=== PATIENT | male | born 1945 | race Caucasian/White ===

== ENCOUNTER 2016-08-29 09:33 | Emergency (ER) | payer OTHER ==
--- NOTE | 2016-08-29 10:05 | C.PDOC ---
History Of Present Illness 71 yo male, hx of htn, presents with swelling and tenderness to right elbow. as per pt, had symptoms x 2 weeks. pt unsure of any trauma. pt also noted bruising to right upper extremity. pt reports "unsure if had insect bite" to right upper extremity. pt denies fevers, or trauma, or other complaints. Time Seen by Provider: 08/29/16 09:50 Chief Complaint (Nursing): Upper Extremity Problem/Injury Past Medical History Reviewed: Historical Data, Nursing Documentation, Vital Signs Vital Signs: Last Vital Signs Temp 97.7 F 08/29/16 12:40 Pulse 73 08/29/16 12:40 Resp 16 08/29/16 12:40 BP 160/91 H 08/29/16 12:40 Pulse Ox 99 08/29/16 12:40 - Medical History PMH: HTN Family History: States: Unknown Family Hx - Social History Hx Alcohol Use: Yes Hx Substance Use: No Review Of Systems Except As Marked, All Systems Reviewed And Found Negative. Musculoskeletal: Positive for: Other ((+)elbow swelling) Skin: Positive for: Other (ecchymosis to right arm) Physical Exam - Physical Exam Appears: Well, No Acute Distress, Other (smiling in nad) Skin: Normal Color, Warm, Dry Eye(s): bilateral: Normal Inspection, PERRL, EOMI Nose: Normal Throat: Normal Neck: Normal Cardiovascular: Rhythm Regular Respiratory: Normal Breath Sounds Gastrointestinal/Abdominal: Normal Exam Back: Normal Inspection Extremity: Normal ROM (no pain with rom), No Tenderness, Capillary Refill, No Deformity, Swelling ((+)swelling, erythema to right olecranon bursa), Other ((+) ecchymosis to right arm (+)2+pulses) ED Course And Treatment - Laboratory Results Result Diagrams: 08/29/16 10:27 08/29/16 10:27 O2 Sat by Pulse Oximetry: 100 Medical Decision Making Medical Decision Making: suspected septic bursitits- will also r/o upper extremity dvt as pt with ecchymosis tracking down arm. no clinical concern for septic joint as pt with only swelling/erythema to olecranon bursa, afebrile, normal rom to right elbow. 1050: pt consented for bursa fluid aspiration. small collection visualized under bedside US. area numbed with 1% lido. area cleaned with alcohol preps. performed under sterile techique. aspirated 1ml of serosanguanous fluid. 1100: dvt study neg as per tech. Disposition - Disposition Referrals: [facility] [Outside] [facility] [Outside] [facility] [place] [Outside] Dee Lopez MD [Staff Provider] - Disposition: HOME/ ROUTINE Disposition Time: 11:00 Condition: GOOD Prescriptions: Naproxen [Naprosyn] 500 mg PO BID PRN #14 tablet PRN Reason: Pain, Mild (1-3) Sulfamethoxazole/Trimethoprim [Bactrim DS 800 mg-160 mg] 1 tab PO BID #14 tab Instructions: Elbow Bursitis (ED) Print Language: NIUEAN - Clinical Impression Clinical Impression: Bursitis Procedure: Fluid Aspiration - Time Performed Time Performed: 10:52 - Time Out Time Out: Side verified - Consent Obtained Consent obtained: Written - Performed By Performed by: Attending Physician - Indications Indication(s): Joint effusion (bursititis) - Contraindications Contraindications: None - Location Location: Right, Elbow - Anesthetic Technique Anesthetic Technique: Topical Anesthetic: Lidocaine 1% Procedure: Usual prep and drape, Ultrasnd. guidance util., Needle gauge (23g) - Appearance Appearance: Serosanguinous - Drained Drained ml: 1ml - Complications Complications: None - Patient tolerated procedure Patient tolerated procedure: Well
[2016-08-29] MEDS ORDERED: Lidocaine 1%/Epinephrine 1:100000 30 ml vial IJ STA (10:12)
[2016-08-29] MEDS ORDERED: Lidocaine 2% w Epi 1:100,000 Inj IJ ONE (10:24)
[2016-08-29] MEDS ORDERED: Lidocaine 1% Inj (20ml) ONE (10:28)
[2016-08-29 10:32] LABS: BASO # 0.1 K/uL (0.0-0.2); BASO % 0.9 % (0.0-2.0); EOS # 0.3 K/uL (0.0-0.7); EOS % 4.2 % (0.0-4.0); HEMATOCRIT 46.2 % (35.0-51.0); LYMPH # 2.8 K/uL (1.0-4.3); LYMPH % 43.6 % (20.0-40.0); MEAN CORPUSCULAR HEMOGLOBIN 27.1 pg (27.0-31.0); MEAN CORPUSCULAR HGB CONC 32.3 g/dL (33.0-37.0); MEAN PLATELET VOLUME 9.1 fL (7.2-11.7); MONO # 0.7 K/uL (0.0-0.8); MONO % 10.5 % (0.0-10.0); RED CELL DISTRIBUTION WIDTH 13.9 % (11.5-14.5); WHITE BLOOD COUNT 6.4 K/uL (4.8-10.8)
[2016-08-29 10:40] LABS: INR 1.1
[2016-08-29 10:47] LABS: CHLORIDE 100 mmol/L (98-107); SODIUM 139 mmol/L (132-148)
[2016-08-29 10:48] LABS: POTASSIUM 3.3 mmol/L (3.6-5.2)
--- NOTE | 2016-08-29 10:48 | RAD ---
PROCEDURE: Radiographs of the right elbow. HISTORY: swelling COMPARISON: No prior. FINDINGS: BONES: Normal. No fracture. JOINTS: Moderate osteoarthritic changes. SOFT TISSUES: Normal. JOINT EFFUSION: None. OTHER FINDINGS: None. IMPRESSION: No evidence of acute fracture or dislocation. Moderate osteoarthritic changes.
[2016-08-29 10:50] LABS: ALB/GLOB RATIO 1.6 (1.0-2.1); ALKALINE PHOSPHATASE 95 U/L (38-126); ALT/SGPT 38 U/L (21-72); AST/SGOT 27 U/L (17-59); BILIRUBIN,TOTAL 0.9 mg/dL (0.2-1.3); BLOOD UREA NITROGEN 11 mg/dL (9-20); CALCIUM 8.7 mg/dl (8.6-10.4); CARBON DIOXIDE 30 mmol/L (22-30); GFR AFRICAN-AMERICAN > 60; GLUCOSE,RANDOM 96 mg/dL (75-110); TOTAL PROTEIN 7.5 g/dL (6.3-8.3)
[2016-08-29] MEDS ORDERED: Tmp-Smz 800 mg-160 mg DS Tab PO STA (11:01)
[2016-08-29] MEDS ORDERED: Potassium Chloride 20 mEq ER Tab PO STA (11:01)
[2016-08-29] MEDS ORDERED: Potassium Chloride 20 mEq ER Tab PO ONE ×2 (11:11→11:16)
[2016-08-29] MEDS ORDERED: Tmp-Smz 800 mg-160 mg DS Tab ONE (11:12)
[2016-08-29 12:42] VITALS: BP 160/91; PULSE 73; RESP 16; TEMP 97.7
[2016-08-29 13:07] VITALS: O2SAT 100
--- NOTE | 2016-08-31 10:15 | VASCLAB ---
PROCEDURE: Right Upper Extremity Venous Duplex Exam HISTORY: swelling r/o dvt PRIORS: None. TECHNIQUE: Right upper extremity, internal jugular, subclavian, axillary, brachial, ulnar, radial, basilic and upper cephalic veins were evaluated. Flow was assessed with color Doppler, compressibility, assessment of phasic flow and augmentation response. Report prepared by REGGIE Ochoa, RVT FINDINGS: RIGHT: 1. Internal Jugular: 1.1. Compressibility - Fully compressible: Thrombus - None : Flow - Phasic: Augmentation -Normal: Reflux - None. 2. Subclavian: 2.1. Compressibility - Fully compressible: Thrombus - None : Flow - Phasic: Augmentation -Normal: Reflux - None. 3. Axillary: 3.1. Compressibility - Fully compressible: Thrombus - None : Flow - Phasic: Augmentation -Normal: Reflux - None. 4. Brachial: 4.1. Compressibility - Fully compressible: Thrombus - None: Flow - Phasic: Augmentation -Normal: Reflux - None. 5. Ulnar: 5.1. Compressibility - Fully compressible: Thrombus - None: Flow - Phasic: Augmentation -Normal: Reflux - None. 6. Radial: 6.1. Compressibility - Fully compressible: Thrombus - None: Flow - Phasic: Augmentation - Normal: Reflux - None. 7. Cephalic: 7.1. Compressibility - Fully compressible: Thrombus - None: Flow - Phasic: Augmentation -Normal: Reflux - None. 8. Basilic: 8.1. Compressibility - Fully compressible: Thrombus - None: Flow - Phasic: Augmentation -Normal: Reflux - None. OTHER FINDINGS: Right: None. IMPRESSION: Right: No evidence of vein thrombosis of the right upper extremity with excellent venous flow. Normal valve function noted of the right side. Normal venous flow noted in the left internal jugular and left subclavian veins.
== END 2016-08-29 12:42 | disposition home or self-care (01) ==
LOC: C.ER 09:33
DX: M70.31 Other bursitis of elbow, right elbow (principal)
CPT/HCPCS: 20606; 73080; 80053; 85025; 85610; 85730; 87070; 87205; 93971; 96374; 99285; J1885